=== PATIENT | male | born 1980 | race African-American/Black ===

== ENCOUNTER 2017-07-23 12:10 | Emergency (ER) | payer SELFPAY ==
[~2017-07-23] VITALS: Ht 177.8 cm; Wt 85.0 kg
[2017-07-23 12:12] VITALS: BP 139/79; PULSE 93; RESP 14; TEMP 98.6; O2SAT 99
[2017-07-23] MEDS ORDERED: AMOX500C PO (13:34)
[2017-07-23] MEDS ORDERED: IBUP1TAB7 PO (13:34)
--- NOTE | 2017-07-23 13:35 | PD ---
HPI Chief Complaint: ENT Complaint Time Seen by Provider: 12:31 Travel History International Travel<30 days: No Contact w/Intl Traveler<30days: No Traveled to known affect area: No History of Present Illness HPI 37-year-old male presents emergency Department with complaint of sore throat and subjective fever 3 days. Reports a little bit of nasal congestion and left ear pain. Denies cough. His girlfriend was sick with the flu last week. Denies vomiting, abdominal pain. Denies lump in throat, difficulty swallowing, unusual drooling. Taken Tylenol, cold/flu medications, and airborne for symptom management. Rates her throat pain 9/10. Describes it as a burning sensation. Worse with swallowing. No primary care provider. No known allergies. Denies significant past medical history. Has no other medical complaints. No other modifying factors or associated signs and symptoms. PFSH Past Medical History Diminished Hearing: No Social History Alcohol Use: Yes (occ ) Tobacco Use: Yes (1/2 pack) Substance Use: No Allergies-Medications (Allergen,Severity, Reaction): Coded Allergies: No Known Allergies (Verified Adverse Reaction, Unknown, 07/23/17) Reported Meds & Prescriptions Reported Meds & Active Scripts Active Ibuprofen 800 Mg Tab 800 Mg PO Q6HR PRN Amoxicillin 500 Mg Cap 500 Mg PO BID 10 Days Review of Systems Except as stated in HPI: all other systems reviewed are Neg Physical Exam Narrative GENERAL: Well-nourished, well-developed black male patient, in no acute distress ; afebrile, nontoxic-appearing SKIN: Warm and dry. No rash. HEAD: Atraumatic. Normocephalic. EYES: Pupils equal and round at 3 mm with brisk reaction. No scleral icterus. No injection or drainage. PERRLA. ENT: Mucosa pink and dry. Pharynx with 2+ tonsils; with erythema, exudate, and edema. No Uvular edema. No uvular, palatal, or tonsillar deviation. Airway patent. Voice is hoarse. EARS: Bilateral pinnae and external canals appear within normal limits. Bilateral tympanic membranes without erythema, dullness or perforation.. NECK: Trachea midline. Anterior cervical lymphadenopathy and tenderness. CARDIOVASCULAR: Regular rate and rhythm. No murmur appreciated. RESPIRATORY: No accessory muscle use. Clear to auscultation. Breath sounds equal bilaterally. GASTROINTESTINAL: Flat. MUSCULOSKELETAL: No obvious deformities. No clubbing. No cyanosis. No edema. NEUROLOGICAL: Awake and alert. Oriented 3. No obvious cranial nerve deficits. Motor grossly within normal limits. Normal speech. Moves all extremities. PSYCHIATRIC: Appropriate mood and affect; insight and judgment normal. Data Data Last Documented VS Vital Signs Date Time Temp Pulse Resp B/P (MAP) Pulse Ox O2 Delivery O2 Flow Rate FiO2 07/23/17 12:12 98.6 93 14 139/79 (99) 99 Orders Orders Influenzae A/B Antigen (07/23/17 12:31) Group A Rapid Strep Screen (07/23/17 12:31) Strep Culture (Group A) (07/23/17 12:45) Ibuprofen (Motrin) (07/23/17 13:45) Ed Discharge Order (07/23/17 13:35) [facility] Medical Decision Making Medical Screen Exam Complete: Yes Emergency Medical Condition: Yes Medical Record Reviewed: Yes Differential Diagnosis Influenza, strep pharyngitis, URI, less likely peritonsillar abscess Narrative Course 37-year-old male physical exam consistent with exudative pharyngitis. Afebrile and nontoxic appearing in the ear. Reports subjective fevers at home. Denies vomiting. Rapid strep, influenza, ibuprofen ordered. 1333: Rapid strep and influenza negative. Secondary to findings on physical exam I will treat the patient with antibiotics for exudative pharyngitis. Throat culture pending. Amoxicillin, ibuprofen prescribed for home. Instructed patient to follow up with primary care provider. Patient verbalizes understanding and agreement with treatment plan. Patient is medically cleared and stable for discharge. Discussed reasons to return to the emergency department. Patient agrees with treatment plan. The patients vital signs are stable and the patient is stable for outpatient follow-up and treatment. Patient discharged home, stable and in no acute distress. Diagnosis Primary Impression: Exudative pharyngitis Referrals: [facility] Primary Care Physician Patient Instructions: General Instructions, Pharyngitis (ED) Departure Forms: Tests/Procedures, Work Release Enter return to work date: Jul 25, 2017 Additional Instructions: Take Antibiotics as prescribed and complete full course of antibiotics Throw away and change your toothbrush 24 hours after starting antibiotics Get plenty of sleep/rest Rest your voice Drink plenty of fluids to prevent dehydration Use warm saltwater gargles to soothe throat pain Use an air humidifier/turn off ceiling fans Use throat lozenges as needed for sore throat Use ibuprofen or acetaminophen as needed to relieve pain and fever Follow-up with your primary care provider within 2-4 days Return immediately to the emergency department with worsening of symptoms Med/Other Pt SpecificInfo: Prescription(s) given Scripts Ibuprofen (Ibuprofen) 800 Mg Tab 800 MG PO Q6HR Y for PAIN, #30 TAB 0 Refills Prov: Yen Morris 07/23/17 Amoxicillin (Amoxicillin) 500 Mg Cap 500 MG PO BID for Infection for 10 Days, #20 CAP 0 Refills Prov: Yen Morris 07/23/17 Disposition: 01 DISCHARGE HOME Condition: Stable Yen Morris Jul 23, 2017 13:35
[2017-07-23] MEDS ORDERED: IBUPROFEN 800 MG TAB PO ONE (13:45)
== END 2017-07-23 13:51 | disposition home or self-care (01) ==
LOC: NEPD 12:10
DX: J02.9 Acute pharyngitis, unspecified (principal); R09.81 Nasal congestion; R50.9 Fever, unspecified; H92.02 Otalgia, left ear; F17.200 Nicotine dependence, unspecified, uncomplicated
CPT/HCPCS: 87081; 87804; 87880; 99283